=== PATIENT | male | born 1995 | race Caucasian/White ===

== ENCOUNTER 2021-09-27 14:27 | Emergency (ER) | payer MEDICAID ==
[~2021-09-27] VITALS: Ht 162.6 cm; Wt 70.0 kg
[2021-09-27 14:35] VITALS: BP 133/66
[2021-09-27] MEDS ORDERED: VISCOUS LIDOCAINE 2% 15 ML UDC PO STA (14:58)
[2021-09-27] MEDS ORDERED: MAGNESIUM/ALUMINUM HYDROXIDE/SIMETHICONE 30ML UDC PO STA (14:58)
[2021-09-27 15:36] LABS: BASOPHILS % 0.3 % (0.0-2.0); EOSINOPHILS % 1.9 % (0.0-5.0); HEMATOCRIT. 45.2 % (42.0-52.0); HEMOGLOBIN. 15.8 g/dL (14.0-18.0); LYMPHOCYTES % 27.3 % (20.0-50.0); MEAN CORPUSCULAR VOLUME 88.5 fL (80.0-94.0); MEAN PLATELET VOLUME 8.4 fl (7.4-10.4); MONOCYTES % 6.4 % (2.0-8.0); NEUTROPHILS % 64.1 % (40.0-76.0); PLATELET 228 x1000/uL (130-400); RED CELL DISTRIBUTION WIDTH 12.8 % (11.6-14.6)
[2021-09-27 15:44] LABS: CHLORIDE 105 mEq/L (98-107)
[2021-09-27] MEDS ORDERED: OMEP20CA14 MT (16:12)
[2021-09-27 16:47] LABS: *AMPHETAMINES SCREEN URINE NEGATIVE (NEGATIVE); *BARBITURATES SCREEN URINE NEGATIVE (NEGATIVE); *BENZODIAZEPINES SCREEN URINE NEGATIVE (NEGATIVE); *COCAINE SCREEN URINE NEGATIVE (NEGATIVE); CANNABINOID URINE SCREEN NEGATIVE (NEGATIVE); METHADONE URINE SCREEN NEGATIVE (NEGATIVE); OPIATES URINE SCREEN NEGATIVE (NEGATIVE); PHENCYCLIDINE URINE SCREEN NEGATIVE (NEGATIVE)
== END 2021-09-27 16:29 | disposition home or self-care (01) ==
LOC: ER 14:27
DX: R10.13 Epigastric pain (principal); R07.89 Other chest pain
CPT/HCPCS: 36415; 71045; 80053; 80305; 85025; 93005; 99285

== ENCOUNTER 2022-06-15 13:33 | Emergency (ER) | payer MEDICAID ==
[~2022-06-15] VITALS: Ht 165.1 cm; Wt 82.0 kg
[~2022-06-15 13:33] MED LIST: OMEP20CA14 MT
[2022-06-15] MEDS ORDERED: IBUPROFEN 600MG TABLET PO STA (15:14)
[2022-06-15 15:26] VITALS: BP 126/82
[2022-06-15] MEDS ORDERED: IBUP-2029 MT (16:29)
== END 2022-06-15 16:51 | disposition home or self-care (01) ==
LOC: ER 13:33
DX: S20.211A Contusion of right front wall of thorax, initial encounter (principal); S09.90XA Unspecified injury of head, initial encounter; W18.30XA Fall on same level, unspecified, initial encounter; Y93.89 Activity, other specified; Y92.89 Other specified places as the place of occurrence of the external cause; Y99.8 Other external cause status
CPT/HCPCS: 71045; 99284

== ENCOUNTER 2022-09-01 16:28 | Emergency (ER) | payer MEDICAID ==
[~2022-09-01] VITALS: Ht 167.6 cm; Wt 75.0 kg
[~2022-09-01 16:28] MED LIST changes: +IBUP-2029 MT
[2022-09-01 16:59] VITALS: BP 87/68
[2022-09-02] MEDS ORDERED: IBUP-2029 MT (20:32)
== END 2022-09-01 23:36 | disposition left against medical advice (07) ==
LOC: ER 16:28
DX: Z53.21 Procedure and treatment not carried out due to patient leaving prior to being seen by health care provider (principal)
CPT/HCPCS: 99281

== ENCOUNTER 2022-09-02 15:34 | Emergency (ER) | payer MEDICAID, OTHER ==
[~2022-09-02] VITALS: Ht 170.2 cm; Wt 74.7 kg
[2022-09-02 16:06] VITALS: BP 113/74
[2022-09-02] MEDS ORDERED: KETOROLAC 15MG/ML VIAL IV ONE (17:45)
[2022-09-02] MEDS ORDERED: SODIUM CHLORIDE 0.9% 1,000 ML IV ONE ×2 (17:45→18:15)
[2022-09-02] MEDS ORDERED: KETOROLAC 30MG/ML VIAL IV STA (18:11)
[2022-09-02 18:23] LABS: CLARITY URINE CLEAR (CLEAR); COLOR URINE YELLOW (YELLOW); KETONES URINE NEGATIVE (NEGATIVE); LEUKOCYTE ESTERASE URINE NEGATIVE (NEGATIVE); NITRITE URINE NEGATIVE (NEGATIVE); OCCULT BLOOD URINE NEGATIVE (NEGATIVE); PROTEIN URINE NEGATIVE (NEGATIVE); SPECIFIC GRAVITY URINE 1.018 (1.005-1.030); UROBILINOGEN URINE 0.2 E.U./dL (0.2-1.0)
[2022-09-02 19:44] LABS: BASOPHILS % 0.3 % (0.0-2.0); EOSINOPHILS % 2.8 % (0.0-5.0); HEMATOCRIT. 45.9 % (42.0-52.0); HEMOGLOBIN. 15.3 g/dL (14.0-18.0); MEAN CORPUSCULAR HEMOGLOBIN 30.1 pg (28.0-32.0); MEAN CORPUSCULAR VOLUME 90.1 fL (80.0-94.0); MONOCYTES % 5.1 % (2.0-8.0); NEUTROPHILS % 59.8 % (40.0-76.0); PLATELET 258 x1000/uL (130-400); RED BLOOD CELL COUNT 5.09 mill/uL (4.7-6.1); RED CELL DISTRIBUTION WIDTH 13.5 % (11.6-14.6)
[2022-09-02 19:56] LABS: CHLORIDE 106 mEq/L (98-107)
[2022-09-02] MEDS ORDERED: IBUP-2029 MT (20:32)
== END 2022-09-02 21:00 | disposition home or self-care (01) ==
LOC: ER 15:34
DX: R10.32 Left lower quadrant pain (principal)
CPT/HCPCS: 36415; 74176; 80053; 81003; 83690; 85025; 87591; 96361; 96374; 99285; J1885; J7030; Z7610

== ENCOUNTER 2022-10-01 16:02 | Emergency (ER) | payer MEDICAID, OTHER ==
[~2022-10-01] VITALS: Ht 167.6 cm; Wt 75.0 kg
[2022-10-01 16:08] VITALS: BP 119/81
[2022-10-01] MEDS ORDERED: PERM60CR4 TP (19:00)
== END 2022-10-01 19:09 | disposition home or self-care (01) ==
LOC: ER 16:02
DX: B86 Scabies (principal)
CPT/HCPCS: 99282

== ENCOUNTER 2022-10-20 17:16 | Emergency (ER) | payer MEDICAID, OTHER ==
[~2022-10-20] VITALS: Ht 165.1 cm; Wt 66.0 kg
[~2022-10-20 17:16] MED LIST changes: +PERM60CR4 TP
[2022-10-20] MEDS ORDERED: KETOROLAC 15MG/ML VIAL IV ONE (17:45)
[2022-10-20] MEDS ORDERED: METOCLOPRAMIDE HCL 10MG/2ML VIAL IV ONE (17:45)
[2022-10-20] MEDS ORDERED: SODIUM CHLORIDE 0.9% 1,000 ML IV ONE (17:45)
[2022-10-20 18:15] VITALS: BP 112/71
== END 2022-10-20 18:55 | disposition left against medical advice (07) ==
LOC: ER 17:16
DX: R51.9 Headache, unspecified (principal)
CPT/HCPCS: 70450; 96361; 96374; 96375; 99285; J1885; J2765; J7030; Z7610